=== PATIENT | female | born 1980 | race Caucasian/White ===

== ENCOUNTER 2018-05-10 14:04 | Emergency (ER) | payer OTHER ==
[~2018-05-10] VITALS: Ht 160 cm; Wt 68.0 kg
[~2018-05-10 14:04] MED LIST: PROTONIX40 MG PO
[2018-05-10] MEDS ORDERED: OSTERA TABLET1 EACH (14:12)
== END 2018-05-10 19:17 | disposition home or self-care (01) ==
LOC: ER 14:04
DX: K52.9 Noninfective gastroenteritis and colitis, unspecified (principal)

== ENCOUNTER 2019-10-09 12:00 | Emergency (ER) | payer OTHER ==
[~2019-10-09] VITALS: Ht 160 cm; Wt 82.6 kg
[~2019-10-09 12:00] MED LIST changes: +OSTERA TABLET1 EACH
[2019-10-09] MEDS ORDERED: PRENATAL 19 TA1 EAC1 (12:06)
[2019-10-09] MEDS ORDERED: ZITHROMAX500 MG PO (15:54)
[2019-10-09] MEDS ORDERED: MUCINEX1200 MG PO (15:54)
== END 2019-10-09 16:10 | disposition home or self-care (01) ==
LOC: ER 12:00
DX: B34.9 Viral infection, unspecified (principal); B96.0 Mycoplasma pneumoniae [M. pneumoniae] as the cause of diseases classified elsewhere

== ENCOUNTER 2020-01-07 13:26 | Inpatient (IN) | payer OTHER ==
[~2020-01-07] VITALS: Ht 160 cm; Wt 94.8 kg
[~2020-01-07 13:26] MED LIST changes: +MUCINEX1200 MG PO; +PRENATAL 19 TA1 EAC1; +ZITHROMAX500 MG PO
[2020-02-03] MEDS ORDERED: OBSTETRIX DHA1 EACH PO (16:40)
== END 2020-02-05 12:31 | disposition home or self-care (01) | DRG 807 ==
LOC: OB/GYN 01-14 12:30 → LDR 02-03 08:46 → OB/GYN 02-03 08:46 → LDR 02-03 15:16 → OB/GYN 02-03 15:45
PROVIDERS: ADMIT Specialist
PROC: 10E0XZZ Delivery of Products of Conception, External Approach (ICD-10-PCS; principal; 2020-02-03)
PROC: 0UQGXZZ Repair Vagina, External Approach (ICD-10-PCS; 2020-02-03)
PROC: 10907ZC Drainage of Amniotic Fluid, Therapeutic from Products of Conception, Via Natural or Artificial Opening (ICD-10-PCS; 2020-02-03)
PROC: 3E0P7VZ Introduction of Hormone into Female Reproductive, Via Natural or Artificial Opening (ICD-10-PCS; 2020-02-03)
PROC: 3E033VJ Introduction of Other Hormone into Peripheral Vein, Percutaneous Approach (ICD-10-PCS; 2020-02-03)
PROC: 4A1HXCZ Monitoring of Products of Conception, Cardiac Rate, External Approach (ICD-10-PCS; 2020-02-03)
DX: O71.4 Obstetric high vaginal laceration alone (principal); Z37.0 Single live birth; Z3A.39 39 weeks gestation of pregnancy

== ENCOUNTER → 2023-03-02 | Emergency (ER) | payer OTHER ==
[~2023-03-02] VITALS: Ht 162.6 cm; Wt 81.6 kg
[~2023-03-02] MED LIST changes: +OBSTETRIX DHA1 EACH PO
== END | disposition home or self-care (01) ==
LOC: ER 18:16
DX: J32.9 Chronic sinusitis, unspecified (principal); G44.89 Other headache syndrome; J02.9 Acute pharyngitis, unspecified; R05.9 Cough, unspecified; R53.81 Other malaise

== ENCOUNTER 2024-10-09 09:51 | Emergency (ER) | payer OTHER ==
[~2024-10-09] VITALS: Ht 160 cm; Wt 77.1 kg
[2024-10-09] MEDS ORDERED: RINGERS SOLUTION,LACTATED 1,000 ML IV STA (10:20)
[2024-10-09] MEDS ORDERED: FAMOtidine 10 MG/ML (4ML VIAL) IV STA (10:21)
[2024-10-09] MEDS ORDERED: ONDANSETRON HCL 2 MG/ML VIAL ONE (10:27)
[2024-10-09] MEDS ORDERED: FAMOTIDINE/PF 20 MG/2 ML VIAL ONE (10:27)
[2024-10-09] MEDS ORDERED: ONDANSETRON HCL 2 MG/ML VIAL IV ONE (10:30)
[2024-10-09 11:28] LABS: HEMATOCRIT 44.2 % (36.0-45.00); HEMOGLOBIN 15.4 g/dL (12.0-15.00); MEAN CELL VOLUME 88.2 fL (80.00-100.00); MEAN CORPUSCULAR HEMOGLOBIN 30.8 pg (27.00-32.0); MEAN CORPUSCULAR HGB CONC 34.9 g/dl (32.0-36.0); PLATELET COUNT 229 K/uL (150-450); RED BLOOD COUNT 5.01 M/uL (4.00-6.00); RED CELL DISTRIBUTION WIDTH 14.1 % (11.5-14.5)
[2024-10-09 12:02] LABS: ALBUMIN 4.1 gm/dL (3.4-5.0); BILIRUBIN TOTAL 0.77 mg/dL (0.3-1.2); BILIRUBIN,CONJUGATED 0.24 mg/dL (0.0-0.2); BILIRUBIN,UNCONJUGATED 0.53 mg/dL (0.0-0.6); CALCIUM 9.2 mg/dL (8.5-10.1); CREATININE SERUM 1.11 mg/dL (0.55-1.02); GFR 54.17; POTASSIUM 3.96 mEq/L (3.5-5.1); TOTAL PROTEIN 8.7 gm/dL (6.4-8.2)
[2024-10-09 12:41] LABS: PH,URINE 5.5 (5.0-8.0); URINE APPEARANCE Turbid; URINE BILIRRUBIN Negative (NEGATIVE); URINE BLOOD Negative; URINE COLOR Dark Yellow; URINE GLUCOSE Negative (NEGATIVE); URINE KETONE Negative (NEGATIVE); URINE LEUKOCYTE Negative; URINE NITRATE Negative; URINE PROTEIN 30 (NEGATIVE); URINE UROBILINOGEN 0.2 E.U./dl
[2024-10-09 12:46] LABS: URINE BACTERIA 198.2 uL (0.0-1933); URINE EPITHELIAL CELLS 32.1 uL (0.0-38.8); URINE RBC 5.3 uL (0.0-20.8); URINE WBC 18.3 uL (0.0-23.2)
[2024-10-09 13:11] LABS: URINE CAST 0.44 uL (0.0-1.40); URINE CRYSTALS MANY /HPF
== END 2024-10-09 16:19 | disposition home or self-care (01) ==
LOC: ER 09:54
PROVIDERS: General Practice
DX: K52.89 Other specified noninfective gastroenteritis and colitis (principal)